=== PATIENT | female | born 1950 | race African-American/Black ===

== ENCOUNTER 2018-11-26 14:56 | Emergency (ER) | payer OTHER ==
[~2018-11-26] VITALS: Ht 162.6 cm; Wt 64.0 kg
[2018-11-26] MEDS ORDERED: SODIUM CHLORIDE 0.9% 1,000 ML IV ONE (15:47)
[2018-11-26] MEDS ORDERED: METHYLPREDNISOLONE SOD SUCC 125 MG/2 ML VIAL IV ONE (16:00)
[2018-11-26] MEDS ORDERED: FAMOTIDINE 20MG/2ML VIAL IV ONE (16:00)
[2018-11-26] MEDS ORDERED: DIPHENHYDRAMINE 50MG/ML VIAL IV ONE (16:00)
[2018-11-26] MEDS ORDERED: PREDNISONE 20MG TABLET PO ONE (18:45)
[2018-11-26 18:52] VITALS: BP 128/83
== END 2018-11-26 19:00 | disposition home or self-care (01) ==
LOC: ER 15:03
DX: T78.49XA Other allergy, initial encounter (principal); I10 Essential (primary) hypertension; X58.XXXA Exposure to other specified factors, initial encounter
CPT/HCPCS: 96374; 96375; 99283; J1200; J2930; J3490; J7030; J7512